=== PATIENT | female | born 1995 | race African-American/Black ===

== ENCOUNTER 2017-10-21 20:09 | Emergency (ER) | payer SELFPAY ==
[2017-10-21 20:28] VITALS: BP 97/55; PULSE 62; RESP 15; TEMP 98.7; O2SAT 100
--- NOTE | 2017-10-21 21:39 | PD ---
HPI Chief Complaint: Related Problem Time Seen by Provider: 20:37 Travel History International Travel<30 days: No Contact w/Intl Traveler<30days: No Traveled to known affect area: No History of Present Illness HPI The patient was seen and examined in the presence of the nurse. This patient reports that she just found out she was . She is not having any acute symptoms are wanted to come to the ER to make sure everything was okay with the baby. She says that she is 5 weeks using menstrual dates. was confirmed at the crisis clinic. She denies pelvic pain or bleeding. Symptom severity is mild PFSH Past Medical History ?: LMP: 11/12/2017 Social History Alcohol Use: No Tobacco Use: No Substance Use: No Allergies-Medications (Allergen,Severity, Reaction): Coded Allergies: No Known Allergies (Unverified , 10/21/17) Review of Systems General / Constitutional: No: Fever HENT: No: Headaches Cardiovascular: No: Chest Pain or Discomfort Respiratory: No: Cough Physical Exam Narrative GENERAL: Well-nourished, well-developed patient. SKIN: Focused skin assessment warm/dry. HEAD: Normocephalic. EYES: No scleral icterus. No injection or drainage. NECK: Supple, trachea midline. No JVD or lymphadenopathy. CARDIOVASCULAR: Regular rate and rhythm without murmurs, gallops, or rubs. RESPIRATORY: Breath sounds equal bilaterally. No accessory muscle use. GASTROINTESTINAL: Abdomen soft, non-tender, nondistended. MUSCULOSKELETAL: No cyanosis, or edema. BACK: Nontender without obvious deformity. No CVA tenderness. Data Data Last Documented VS Vital Signs Date Time Temp Pulse Resp B/P (MAP) Pulse Ox O2 Delivery O2 Flow Rate FiO2 10/21/17 20:28 98.7 62 15 97/55 (69) 100 Orders Orders Gc And Chlamydia Pcr (10/21/17 21:03) Labs Laboratory Tests Test 10/21/17 21:08 [facility] Medical Decision Making Medical Screen Exam Complete: Yes Emergency Medical Condition: Yes Medical Record Reviewed: Yes Differential Diagnosis , normal exam, malingering Narrative Course I have reviewed the patient's electronic medical record. Patient needs follow-up with OB for evaluation. She wanted her urine sent to check for STDs. We sent this for chlamydia and gonorrhea testing. As soon as we did that she snuck out of the department against advice Diagnosis Primary Impression: Qualified Codes: Z3A.01 - Less than 8 weeks gestation of Disposition: 07 AGAINST MEDICAL ADVICE Papa Flor MD October 21, 2017 21:39
== END 2017-10-21 22:08 | disposition left against medical advice (07) ==
LOC: NEPD 20:09
DX: Z34.91 Encounter for supervision of normal pregnancy, unspecified, first trimester (principal)
CPT/HCPCS: 87491; 87591; 99283

== ENCOUNTER 2017-11-05 19:24 | Emergency (ER) | payer OTHER ==
[~2017-11-05] VITALS: Ht 162.6 cm; Wt 64.8 kg
[2017-11-05 19:29] VITALS: BP 126/66; PULSE 108; RESP 16; TEMP 98.8; O2SAT 98
[2017-11-05 20:45] LABS: BILIRUBIN, URINE NEG (NEG); BLOOD, URINE NEG (NEG); GLUCOSE,URINE NEG (NEG); KETONE, URINE NEG (NEG); NITRITE,URINE NEG (NEG); PH, URINE 5.5 (5.0-8.5); URINE COLOR YELLOW (YELLW/STRAW); URINE LEUKOCYTE ESTERASE SMALL (NEG)
[2017-11-05 20:50] LABS: BACTERIA, URINE MOD /hpf; RBC, URINE 0-3 /hpf (0-3); SQUAMOUS EPITHELIAL CELL URINE > 8 /hpf (0-5)
--- NOTE | 2017-11-05 22:32 | PD ---
HPI Chief Complaint: Related Problem Time Seen by Provider: 19:52 Travel History International Travel<30 days: No Contact w/Intl Traveler<30days: No Traveled to known affect area: No History of Present Illness HPI Is a 22-year-old woman who presents to the emergency department complaining of with some vaginal discharge. She about 8 weeks . She is 3 para 0. She states that she beginning lower abdominal cramping, with some vomiting on for the past couple days. She has also had some vaginal discharge. She sexually active one male partner. History of STD and PID. Last menstrual period November 12. History Past Medical History Medical History: Denies Significant Hx LMP: 11/12/17 Past Surgical History Surgical History: No Previous Surgery Social History Alcohol Use: No Tobacco Use: No Allergies-Medications (Allergen,Severity, Reaction): Coded Allergies: latex (Verified Allergy, Severe, Rash, 11/05/17) Review of Systems Except as stated in HPI: all other systems reviewed are Neg Physical Exam Narrative GENERAL: 21-year-old woman, no acute distress. SKIN: Focused skin assessment warm/dry. HEAD: Atraumatic. Normocephalic. CARDIOVASCULAR: Regular rate and rhythm. No murmur appreciated. RESPIRATORY: No accessory muscle use. Clear to auscultation. Breath sounds equal bilaterally. GASTROINTESTINAL: Abdomen soft, non-tender, nondistended. Hepatic and splenic margins not palpable. MUSCULOSKELETAL: No obvious deformities. No edema. NEUROLOGICAL: Awake and alert. No obvious cranial nerve deficits. Motor grossly within normal limits. Normal speech. PSYCHIATRIC: Appropriate mood and affect; insight and judgment normal. : Normal external female genitalia. Moderate amount of vaginal discharge. Mild uterine and adnexal tenderness. No definite cervical motion tenderness. Data Data Last Documented VS Vital Signs Date Time Temp Pulse Resp B/P (MAP) Pulse Ox O2 Delivery O2 Flow Rate FiO2 11/05/17 19:29 98.8 108 16 126/66 (86) 98 Orders Orders Beta Hcg (Quant/Titer) (11/05/17 20:29) Gc And Chlamydia Pcr (11/05/17 20:29) Wet Prep Profile (11/05/17 20:29) Ed Poc Ultrasound (11/05/17 20:29) Urinalysis - C+S If Indicated (11/05/17 20:33) Urine Culture (11/05/17 20:33) Labs Laboratory Tests Test 11/05/17 20:33 11/05/17 21:15 11/05/17 21:45 Urine Color YELLOW Urine Turbidity SL CLOUDY Urine pH 5.5 Urine Specific [place] LESS/EQUAL 1.005 Urine Protein NEG mg/dL Urine Glucose (UA) NEG mg/dL Urine Ketones NEG mg/dL Urine Occult Blood NEG Urine Nitrite NEG Urine Bilirubin NEG Urine Urobilinogen 0.2 MG/DL Urine Leukocyte Esterase SMALL Urine RBC 0-3 /hpf Urine WBC 6-8 /hpf Urine Squamous Epithelial Cells > 8 /hpf Urine Bacteria MOD /hpf Microscopic Urinalysis Comment CULTURE INDICATED Human Chorionic Gonadotropin, Quant 47688 MIU/ML Clue Cells (Wet Prep) PRESENT Vaginal Trichomonas (Wet Prep) NONE SEEN Vaginal Yeast (Wet Prep) NONE SEEN MDM Medical Decision Making Medical Screen Exam Complete: Yes Emergency Medical Condition: Yes Differential Diagnosis PID, cervicitis, vaginitis, vaginosis, , ectopic, other Narrative Course 21-year-old woman, , presents with vaginal discharge lower abdominal pain. Bedside ultrasound confirms IUP. Urine is a little bit of pyuria and there is some bacterial vaginosis. Cervicitis is not a possibility but not definite on exam. Will treat UTI, BV, follow-up GC chlamydia cultures. Procedures Procedure Narrative Bedside ultrasound: [id number] ultrasound was performed at the bedside by myself to determine intrauterine . [place] intrauterine with good heart rate was identified, approximately 6 weeks. Diagnosis Primary Impression: Abdominal pain during intrauterine Additional Impression: Bacterial vaginosis Additional Instructions: Take Flagyl as prescribed. Take Keflex as prescribed. 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 Return to the emergency department for any new or worsening symptoms. Med/Other Pt SpecificInfo: Prescription(s) given Scripts Cephalexin (Keflex) 500 Mg Cap 500 MG PO Q8H for Infection for 7 Days, #21 CAP 0 Refills Prov: Elvis Armas MD 11/05/17 Metronidazole (Flagyl) 500 Mg Tab 500 MG PO BID for Infection for 7 Days, #14 TAB 0 Refills Prov: Elvis Armas MD 11/05/17 Disposition: 01 DISCHARGE HOME Condition: Stable Elvis Armas MD November 05, 2017 22:32
[2017-11-05] MEDS ORDERED: CEPH-460 PO (22:54)
[2017-11-05] MEDS ORDERED: METR-1 PO (22:54)
[2017-11-05 23:19] VITALS: BP 124/70
== END 2017-11-05 23:22 | disposition home or self-care (01) ==
LOC: PHED 19:24
DX: O23.591 Infection of other part of genital tract in pregnancy, first trimester (principal); O21.9 Vomiting of pregnancy, unspecified; R10.9 Unspecified abdominal pain; Z3A.08 8 weeks gestation of pregnancy
CPT/HCPCS: 81001; 84702; 87086; 87210; 87491; 87591; 99284